=== PATIENT | male | born 1960 | race Caucasian/White ===

== ENCOUNTER 2022-01-10 01:15 | Observation (INO) ==
[2022-01-10] MEDS ORDERED: Metoprolol Tartrate 5 mg VIAL 5 ml VIAL (1 mg/ml) ONE ×2 (01:53→02:02)
[2022-01-10] MEDS ORDERED: NS 0.9% 1000 ml BAG 1,000 ML IV ONE (01:55)
[2022-01-10] MEDS: Metoprolol Tartrate 5 mg VIAL 5 ml VIAL (1 mg/ml) IV PRN ×3 (01:57→02:18)
[2022-01-10 02:49] LABS: ABS Eosinophils 0.3 10^3/ul (0-0.6); ABS Lymphocytes 1.5 10^3/ul (1.0-4.8); ABS Monocytes 0.6 10^3/ul (0-0.8); ABS Neutrophils 2.6 10^3/ul (1.5-7.7); Eosinophil % 6.5 %; Hematocrit 39 % (42-52); Hemoglobin 13.3 g/dL (14.0-18.0); Lymphocyte % 29.3 %; Mean Corpuscular HGB Conc 34 g/dL (31-36); Mean Corpuscular Hemoglobin 34 pg (27-31); Mean Corpuscular Volume 99 fL (80-94); Mean Platelet Volume 8.4 fL (7.4-10.4); Platelet Count 185 10^3/uL (150-450); Red Blood Count 3.95 10^6 /uL (4.18-5.48); Red Cell Distribution Width 13 % (10-15); White Blood Count 5.1 10^3/uL (3.5-10.8)
[2022-01-10 03:03] LABS: Activated Partial Thrombo Time 31.4 seconds (26.0-38.0); INR 1.02 (0.86-1.15)
[2022-01-10 03:04] LABS: Albumin 4.3 g/dL (3.2-5.2); Albumin/Globulin Ratio 1.5 (1-3); Calcium 9.3 mg/dL (8.6-10.3); Globulin 2.8 g/dL (2-4); Total Bilirubin 0.7 mg/dL (0.2-1.0); Total Protein 7.1 g/dL (6.4-8.9); eGFR CKD-EPI 83.6 (>60)
[2022-01-10 03:43] LABS: High Sensitivity Troponin 1 Hr 3 pg/mL (<20)
[2022-01-10] MEDS ORDERED: Ondansetron 4 mg VIAL 2 MG/ML 2 ml VIAL IV PRN (06:09)
[2022-01-10] MEDS ORDERED: Lactated Ringers 1000 ml BAG 1,000 ML IV SCH (07:00)
[2022-01-10 07:47] LABS: Magnesium 2.1 mg/dL (1.9-2.7)
[2022-01-10 08:01] LABS: TSH Ultra Thyroid Stim Horm 1.65 mcIU/mL (0.34-5.60)
[2022-01-10 11:43] VITALS: BP 100/55
== END 2022-01-10 13:26 | disposition left against medical advice (07) ==
LOC: EDHOLD 01:15 → ED 01:15 → MEDTELE 08:31
PROVIDERS: ADMIT Internal Medicine; ATTEND Internal Medicine